=== PATIENT | female | born 1960 | race Caucasian/White ===

== ENCOUNTER → 2024-10-17 | Outpatient (CLI) | payer MEDICAID, SELFPAY ==
--- NOTE | 2024-10-17 12:00 | XR_ITS ---
Examination: MRI lumbar spine without contrast Date and time of exam: 10/17/2024 12:29 PM INDICATIONS: Low back pain beginning 5 years ago Technique: Multiple MRI axial and sagittal sections lumbar spine. Sagittal T2-weighted images, TR 3500, TE 118 T1 weighted transverse sections, TR 688 T8.5, T2-weighted sagittal sections T1 weighted sagittal sections TR 621, TE 30 T2 axial sections, TR 4, 190, TE 84. Findings: Lumbar fusion L2-L3, L4-L5 Advanced degenerative disc disease L3-L4 No lumbar fracture No spondylolisthesis L5-S1 3 mm central lumbar disc bulge L4-L5 no disc protrusion L3-L4 moderate to severe overall spinal stenosis, axial image 7, secondary to 4 mm central lumbar disc bulge, prominent facet arthropathy circumferentially narrowing the thecal sac with mild left mild right L3 ganglionic compression L2-L3 no disc protrusion L1-L2 no disc protrusion IMPRESSION: Advanced degenerative disc disease L3-L4 L3-L4 moderate to severe overall spinal stenosis as above
== END | disposition home or self-care (01) ==
PROVIDERS: PCP Physician Assistant; Referring Provider Physician Assistant; Visit Provider Physician Assistant
DX: M51.369 Other intervertebral disc degeneration, lumbar region without mention of lumbar back pain or lower extremity pain (principal); M48.061 Spinal stenosis, lumbar region without neurogenic claudication
CPT/HCPCS: 72148

== ENCOUNTER → 2025-02-12 | Outpatient (CLI) | payer MEDICAID, SELFPAY ==
--- NOTE | 2025-02-12 13:00 | XR_ITS ---
Examination: CT bilateral hips without intravenous contrast CT pelvis without intravenous contrast. 2-D sagittal and coronal reconstructions. Date and time of exam: February 12, 2025, 1325 hours, comparison March 13, 2023 INDICATIONS: Bilateral hip pain 8 months CTDI: vol (mGy) : 7.79 DLP: (mGycm) : 253 Technique: Multiple 3 mm axial sections of the bilateral hips pelvis have been obtained with the 64 slice high resolution scanner. 2-D sagittal and coronal reconstructions. Low dose protocols were performed. One or more of the following dose reduction techniques were used; automated exposure control, adjustment of the mA and/or KV according to patient size, use of iterative reconstruction technique. Findings: Urinary bladder intact No pelvic mass Severe osteopenia Right hip hemiarthroplasty with adequate alignment Large area of osseous erosion involving the right supra-acetabular region, coronal image 76, measuring 13 mm Advanced left hip osteoarthritis with subarticular cyst formation IMPRESSION: Advanced left hip osteoarthritis Large area of cortical bone destruction right acetabulum adjacent to the hip prosthesis, differential would include osteomyelitis, clinical correlation advised
== END | disposition home or self-care (01) ==
LOC: CCTX 12:55
PROVIDERS: PCP Physician Assistant; Referring Provider Physician Assistant; Visit Provider Physician Assistant
DX: M16.12 Unilateral primary osteoarthritis, left hip (principal); M89.8X8 Other specified disorders of bone, other site
CPT/HCPCS: 73700